=== PATIENT | female | born 1990 | race Two or more races ===

== ENCOUNTER → 2023-05-04 | Day surgery (SDC) | payer OTHER ==
[2023-05-01 11:30] LABS: HEMATOCRIT 38.8 % (36.0-45.00); HEMOGLOBIN 12.7 g/dL (12.0-15.00); MEAN CELL VOLUME 89.4 fL (80.00-100.00); MEAN CORPUSCULAR HEMOGLOBIN 29.3 pg (27.00-32.0); MEAN CORPUSCULAR HGB CONC 32.7 g/dl (32.0-36.0); PLATELET COUNT 288 K/uL (150-450); RED BLOOD COUNT 4.34 M/uL (4.00-6.00); RED CELL DISTRIBUTION WIDTH 13.4 % (11.5-14.5)
[2023-05-01 11:41] LABS: URINE APPEARANCE Clear; URINE BILIRRUBIN Negative (NEGATIVE); URINE BLOOD Negative; URINE COLOR Yellow; URINE GLUCOSE Negative (NEGATIVE); URINE LEUKOCYTE Negative; URINE NITRATE Negative; URINE PROTEIN Negative (NEGATIVE); URINE UROBILINOGEN 0.2 E.U./dl
[2023-05-01 11:50] LABS: URINE EPITHELIAL CELLS 4.5 uL (0.0-38.8); URINE RBC 2.2 uL (0.0-20.8)
[2023-05-01 11:52] LABS: INR 0.99; PROTHROMBIN TIME 10.4 SECONDS (9.0-11.5)
[2023-05-01 12:08] LABS: ALBUMIN 3.7 gm/dL (3.4-5.0); BILIRUBIN TOTAL 0.49 mg/dL (0.3-1.2); CALCIUM 8.6 mg/dL (8.5-10.1); CREATININE SERUM 0.77 mg/dL (0.55-1.02); GFR 85.81; GLOBULINA 3.5 G/DL (2.4-3.5); POTASSIUM 4.13 mEq/L (3.5-5.1); TOTAL PROTEIN 7.2 gm/dL (6.4-8.2); TSH 1.88 uIU/mL (0.358-3.74)
[~2023-05-04] MED LIST: MORGIDOX100 MG PO; NAPRELAN500 M1 PO
== END | disposition home or self-care (01) ==
LOC: ADM 05-01 10:45 → CIR.AMB 08:52
PROVIDERS: ATTEND Obstetrics & Gynecology
DX: N84.0 Polyp of corpus uteri (principal); D25.0 Submucous leiomyoma of uterus; N92.5 Other specified irregular menstruation; Z20.822 Contact with and (suspected) exposure to COVID-19